=== PATIENT | male | born 1980 | race Caucasian/White ===

== ENCOUNTER 2018-10-29 16:16 | Emergency (ER) | payer OTHER ==
[2018-10-29 16:20] VITALS: BP 128/84; PULSE 113; RESP 18; TEMP 98.1
[2018-10-29] MEDS ORDERED: KETOROLAC 30 MG/ML 1 ML VIAL IM STA (17:10)
[2018-10-29] MEDS ORDERED: predniSONE 20 MG TAB PO STA (17:10)
[2018-10-29] MEDS ORDERED: DIAZEPAM 5 MG TAB PO STA (17:10)
--- NOTE | 2018-10-29 17:40 | ED ---
Upper Extremity HPI - General Chief Complaint: Extremity Injury, Upper Stated Complaint: rt arm pain Time Seen by Provider: 10/29/18 16:34 Source: patient Mode of arrival: ambulatory Limitations: no limitations - History of Present Illness Initial Comments: 38-year-old male presented for bilateral upper arm pain. Patient states he has had a pinched nerve in the past he states it comes and goes. He states is chronic for years. Patient denies any new neck injury denies history of cancer or IV drug use fever chills night sweats history of tuberculosis. Patient denies any loss sensation of the upper extremity. He denies any chest pain nausea vomiting epigastric abdominal pain he denies any mid back pain. Patient states that steroids usually help and presents emergency department for evaluation. Upon arrival patient appears well no signs of acute distress. - Related Data Previous Rx's Medication Instructions Recorded Divalproex ER [Depakote ER] 750 mg PO DAILY #21 tab.er.24h 05/23/15 QUEtiapine [SEROquel] 75 mg PO HS #21 tab 05/23/15 predniSONE 20 mg PO BID 4 Days #8 tab 10/29/18 Allergies Allergy/AdvReac Type Severity Reaction Status Date / Time No Known Allergies Allergy Verified 10/29/18 16:20 Review of Systems ROS Statement: Those systems with pertinent positive or pertinent negative responses have been documented in the HPI. ROS Other: All systems not noted in ROS Statement are negative. Past Medical History Past Medical History: Hypertension History of Any Multi-Drug Resistant Organisms: None Reported Past Surgical History: No Surgical Hx Reported Past Psychological History: Anxiety, Panic Disorder Smoking Status: Heavy tobacco smoker Past Alcohol Use History: Occasional Past Drug Use History: Marijuana - Past Family History Father Additional Family Medical History / Comment(s): Father is alive in his 70s with history of heroin abuse. Mother Additional Family Medical History / Comment(s): Mother in her 50s or 60s from liver disease due to alcoholism. Patient denies having any brothers, sisters or children. General Exam - General Exam Comments Initial Comments: General: The patient is awake and alert, in no distress, and does not appear acutely ill. Eye: Pupils are equal, round and reactive to light, extra-ocular movements are intact. No nystagmus. There is normal conjunctiva bilaterally. No signs of icterus. Ears, nose, mouth and throat: There are moist mucous membranes and no oral lesions. Neck: The neck is supple, there is no tenderness or JVD. Cardiovascular: There is a regular rate and rhythm. No murmur, rub or gallop is appreciated. Respiratory: Lungs are clear to auscultation, respirations are non-labored, breath sounds are equal. No wheezes, stridor, rales, or rhonchi. Gastrointestinal: Soft, non-distended, non-tender abdomen without masses or organomegaly noted. There is no rebound or guarding present. No CVA tenderness. Bowel sounds are unremarkable. Musculoskeletal: Positive Spurling. Normal ROM, no tenderness of the UE. Strength 5/5 of the UE. Sensation intact of the UE b/l. Radial pulses equal bilaterally 2+. Paravertebral tenderness of the cervical spine Neurological: A&O x 3. CN II-XII intact, There are no obvious motor or sensory deficits. Coordination appears grossly intact. Speech is normal. Skin: Skin is warm and dry and no rashes or lesions are noted. Psychiatric: Cooperative, appropriate mood & affect, normal judgment. Limitations: no limitations Course Vital Signs 10/29/18 10/29/18 16:17 17:51 Temperature 98.1 F 98.1 F Pulse Rate 113 H 113 H Respiratory 18 18 Rate Blood Pressure 128/84 128/84 O2 Sat by Pulse 98 98 Oximetry Medical Decision Making - Medical Decision Making 38-year-old male presented for bilateral arm pain. Patient states he has had "pinched nerve" in the past. Patient states characters to the pain is identical sharp burning pain down the arms bilaterally. Patient has a chest or back pain. He states that he does occasionally have neck pain. She denies IV drug use fever chills night sweats IV drug use history of cancer or tuberculosis. Patient denies any direct or indirect trauma to the neck. Patient states he often slouches. Patient states steroids usually help during these flares. Patient is provided prednisone. Patient had right home and was provided Valium as well as Toradol. Return parameters discussed at length the patient who at this time I feel stable for discharge with outpatient orthopedic surgery. I discussed the case attending provider Dr. Vick who is agreeable to outpatient care plan and discharged today. Disposition Clinical Impression: Radiculopathy Disposition: HOME SELF-CARE Condition: Good Instructions (If sedation given, give patient instructions): Cervical Radiculopathy (ED), Chronic Neck Pain (DC) Additional Instructions: Please use medication as discussed. Please follow-up with family doctor in the next 2 days. Please follow-up with orthopedic surgery if symptoms persist. Please return to emergency room if the symptoms increase or worsen or for any other concerns. Prescriptions: predniSONE 20 mg PO BID 4 Days #8 tab Is patient prescribed a controlled substance at d/c from ED?: No Referrals: None,Stated [Primary Care Provider] - 1-2 days [facility] [NON-STAFF] - 1-2 days Shira Mirza DO [Doctor of Osteopathic Medicine] - 1-2 days Time of Disposition: 17:40
== END 2018-10-29 17:51 | disposition home or self-care (01) ==
LOC: EC 16:16
DX: M54.10 Radiculopathy, site unspecified (principal); F17.200 Nicotine dependence, unspecified, uncomplicated
CPT/HCPCS: 99283; 96372; J1885; J7512

== ENCOUNTER 2024-04-25 20:22 | Emergency (ER) | payer OTHER ==
[2024-04-25 20:35] VITALS: TEMP 97.9
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
[2024-04-25 21:52] VITALS: BP 140/97; PULSE 90; RESP 18
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
[2024-04-25] MEDS: ACET/COD 300 MG/30 MG STARTER PACK 6 TAB BTL PO STA (22:02)
[2024-04-25] MEDS: KETOROLAC 15 MG/ML 1 ML VIAL IVP STA (22:03)
== END 2024-04-25 22:33 | disposition left against medical advice (07) ==
LOC: EC 20:22
CPT/HCPCS: 96374; 99283

== ENCOUNTER → 2024-04-29 | Outpatient (CLI) | payer OTHER ==
--- NOTE | 2024-04-29 13:20 | XR ---
EXAMINATION TYPE: XR chest 2V DATE OF EXAM: 04/29/2024 12:15 PM COMPARISON: None CLINICAL INDICATION: Male, 44 years old with history of Z01.818 PRE SURGICAL LABS/R05.9 CHEST XRAY; TECHNIQUE: XR chest 2V Frontal and lateral views of the chest. FINDINGS: Lungs/Pleura: There is no evidence of pleural effusion, focal consolidation, or pneumothorax. Pulmonary vascularity: Unremarkable. Heart/mediastinum: Cardiomediastinal silhouette is unremarkable. Musculoskeletal: No acute osseous pathology. IMPRESSION: No acute cardiopulmonary disease/process. [facility], , 04/29/2024 1:17 PM
[2024-04-29 16:10] LABS: Basophils # (A) 0.05 X 10*3/uL (0.00-0.10); Basophils % (A) 0.5 %; Eosinophils % (A) 2.9 %; HGB 13.9 g/dL (13.0-17.0); Lymphocytes # (A) 2.48 X 10*3/uL (0.90-5.00); Lymphocytes % (A) 23.8 %; MCH 31.1 pg (27.0-32.0); MCHC 33.1 g/dL (32.0-37.0); Mean Platelet Volume 9.7 FL (9.5-12.2); Monocytes # (A) 0.73 X 10*3/uL (0.20-1.00); NRBC Per 100 WBC 0 X 10*3/uL (0.00-0.01); Neutrophils # (A) 6.83 X 10*3/uL (1.80-7.70); Neutrophils % (A) 65.4 %; Platelet Count 285 X 10*3/uL (140-440); RBC 4.47 X 10*6/uL (4.40-5.60); RDW 11.9 % (11.5-14.5); WBC 10.43 X 10*3/uL (4.50-10.00)
[2024-04-29 16:25] LABS: BUN/Creat Ratio 13.43 Ratio (12.00-20.00); Blood Urea Nitrogen 9.4 mg/dL (9.0-27.0); Carbon Dioxide 25.8 mmol/L (21.6-31.8); Chloride 100 mmol/L (96-109); Glucose 94 mg/dL (70-110); Potassium 4.2 mmol/L (3.5-5.5); Sodium 137 mmol/L (135-145)
[2024-04-29 16:26] LABS: Calcium 9.2 mg/dL (8.7-10.3)
== END | disposition home or self-care (01) ==
LOC: LABPAT 10:34
PROVIDERS: ATTEND Orthopaedic Surgery
CPT/HCPCS: 36415; 71046; 80048; 85025

== ENCOUNTER 2024-05-01 06:13 | Day surgery (SDC) | payer OTHER ==
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
[2024-05-01] MEDS ORDERED: MIDAZOLAM 2 MG/2 ML VIAL IV PRN (07:00)
[2024-05-01] MEDS: DEXAMETHASONE SOD PHOSPHATE 4 MG/ML 1 ML VIAL IV ONE (07:41)
[2024-05-01] MEDS: ONDANSETRON 4 MG/2 ML VIAL IVP ONE (07:41)
[2024-05-01] MEDS: SCOPOLAMINE 1 MG/72 HR PATCH TRANSDERM ONE (07:41)
[2024-05-01] MEDS: LACTATED RINGERS 1,000 ML IV SCH (07:45)
[2024-05-01] MEDS: IV FLUID CONTINUATION 1,000 ML IV ONE (07:55)
[2024-05-01] MEDS: IPRATROPIUM-ALBUTEROL 3 ML NEB INHALATION STA (08:01)
[2024-05-01] MEDS ORDERED: LIDOCAINE 1% INJ 10MG/ML (20 ML MDV) ONE (08:41)
[2024-05-01] MEDS ORDERED: GLYCOPYRROLATE 0.2 MG/ML 2 ML VIAL ONE (08:41)
[2024-05-01] MEDS ORDERED: KETOROLAC 15 MG/ML 1 ML VIAL ONE (08:41)
[2024-05-01] MEDS ORDERED: PROPOFOL 10 MG/ML 20 ML VIAL IV ONE (08:41)
[2024-05-01] MEDS ORDERED: KETAMINE HCL IN 0.9 % NACL 50 MG/5 ML SYRINGE ONE (08:41)
[2024-05-01] MEDS ORDERED: NEOSTIGMINE 1 MG/ML 10 ML VIAL ONE (08:41)
[2024-05-01] MEDS ORDERED: MIDAZOLAM 2 MG/2 ML VIAL ONE (08:41)
[2024-05-01] MEDS ORDERED: ROCURONIUM 10 MG/ML (5 ML VIAL) IV ONE (08:41)
[2024-05-01] MEDS ORDERED: SUCCINYLCHOLINE CHLORIDE 200 MG/10 ML VIAL IV ONE (08:41)
[2024-05-01] MEDS ORDERED: fentaNYL (PF) 50 MCG/ML 2 ML AMP ONE (08:41)
[2024-05-01] MEDS ORDERED: HYDROmorphone (PF) 1 MG/ML ONE (08:41)
[2024-05-01] MEDS: ceFAZolin 3,000 MG in SODIUM CHLORIDE 0.9% IRRIGATIO 3,000 ML IRRIGATION ONE (09:10)
[2024-05-01] MEDS ORDERED: HYDROcodone/APAP 5-325MG 1 EACH TAB PO PRN (09:40)
[2024-05-01] MEDS ORDERED: HYDROmorphone 2 MG/ML 1 ML SYRINGE IVP PRN (09:40)
[2024-05-01] MEDS ORDERED: SENNOSIDES-DOCUSATE SODIUM 1 EACH TAB PO PRN (09:40)
[2024-05-01] MEDS: LACTATED RINGERS 1,000 ML IV ONE (09:47)
--- NOTE | 2024-05-01 10:04 | P.OP ---
Date of Procedure: 05/01/24 Preoperative Diagnosis: Left knee comminuteddisplaced inferior pole patella fracture Postoperative Diagnosis: Same Procedure(s) Performed: Left knee partial patellectomy me/patellar tendon repair Anesthesia: SARA Surgeon: Brandan Yoder Air Sampling And Monitoring #1: Didier Huizar Estimated Blood Loss (ml): 50 Pathology: none sent Condition: stable Disposition: PACU Indications for Procedure: The patient is a 44-year-old male who presents with left knee pain after a rec ent injury. Upon evaluation he was noted to have evidence of a displaced inferior pole patella fracture. A discussion of the risks and benefits of operative intervention was made with patient. He opted to proceed with surgery. I discussed operative options, and since the inferior pole fragment was too small to consider fixation, we planned on partial patellectomy with patellar tendon repair. Risks of surgery to include infection, neurovascular injury, development of blood clots, possible tendon rerupture, possible need for subsequent procedures were discussed. Informed consent was obtained. Operative Findings: As below Description of Procedure: The patient was brought to the operating room, and after induction of general anesthesia the left lower extremity was prepped and draped in normal fashion. The tourniquet was inflated to 270 mmHg. A midline incision was then made centered over the patella extending to the tibial tubercle. Skin was incised sharply. Subcutaneous tissues were divided sharply. Electrocautery was used for hemostasis. The peritenon was opened. The fracture site was identified and cleaned of clot and debris. The inferior fragment was identified and patellar tendon was completely exposed. The small inferior fragment had no cartilage. This was excised with sharp dissection. Two #5 Ethibond sutures were then placed in the patellar tendon in a Bennell type fashion. 3 drill holes were made in the patella just off the articular surface inferiorly extending to the anterior aspect of the patella. A suture passer was used to pass the sutures. The knee was then fully extended and the sutures were tensioned. I had good apposition of the patellar tendon and the patella. The medial and lateral retinacular tears were repaired with #1 interrupted Vicryl suture. The subcutaneous tissues reapproximated interrupted 2-0 Vicryl sutures. The skin was reapproximated 3-0 subcuticular strata fix suture. Skin tape and adhesive was applied. A sterile dressing was applied in addition to a hinged knee brace locked in full extension. The tourniquet was deflated with less than 1 hour total tourniquet time. The patient was awoken from general anesthesia and transferred to the recovery room in good condition. Blood loss is estimated 50 cc. No complications were incurred. Sponge and needle counts were correct at the end the case. DELANO Colon assisted during the major components of the case to include positioning, exposure, repair, and closure.
[2024-05-01] MEDS: HYDROmorphone 0.5 MG/0.5 ML SYRINGE IVP PRN ×2 (10:19→15:21)
[2024-05-01] MEDS: LABETALOL SYRINGE 5 MG/ML (4 ML SYR) IVP STA (10:50)
[2024-05-01] MEDS: HYDROcodone/APAP 7.5-325MG 1 EACH TAB PO PRN (12:56)
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
[2024-05-01] MEDS: NICOTINE 21MG/24HR PATCH TRANSDERM SCH (15:28)
[2024-05-01] MEDS: hydrOXYzine pamoate 25 MG CAP PO PRN (18:19)
[2024-05-02 05:38] LABS: Basophils % (A) 0 %; Eosinophils # (A) 0.1 k/uL (0-0.7); Eosinophils % (A) 1 %; HCT 38.1 % (39.0-53.0); HGB 12.1 gm/dL (13.0-17.5); Lymphocytes # (A) 2.1 k/uL (1.0-4.8); Lymphocytes % (A) 16 %; MCH 30.4 pg (25.0-35.0); MCHC 31.8 g/dL (31.0-37.0); MCV 95.7 fL (80.0-100.0); Mean Platelet Volume 7.2; Monocytes # (A) 0.6 k/uL (0-1.0); Monocytes % (A) 5 %; Neutrophils # (A) 10.7 k/uL (1.3-7.7); Neutrophils % (A) 78 %; Platelet Count 280 k/uL (150-450); RBC 3.98 m/uL (4.30-5.90); RDW 12.2 % (11.5-15.5); WBC 13.7 k/uL (3.8-10.6)
[2024-05-02 09:23] VITALS: BP 149/82; PULSE 119; RESP 18; TEMP 98.5
--- NOTE | 2024-05-02 10:59 | P.PN ---
Progress Note - Text Progress Note Date: 05/02/24 Patient is stable for discharge from a medical standpoint. I reviewed patient's labs and vital signs. I have completed patient's medication reconciliation. Medicine service will sign off.
--- NOTE | 2024-05-02 12:52 | P.PN ---
Subjective Progress Note Date: 05/02/24 Principal diagnosis: Left knee pain and weakness Patient seen and examined this afternoon. Patient is resting comfortable in bed. Spouse is at bedside. Surgical incision over the anterior left knee, edges are well approximated with glue intact, exofin tape is intact. Immobilizer is in place and locked at full extension. Patient is requesting a walker with wheels, prescription has been filled out with Case management. Patient is looking forward to discharge home this afternoon. No acute concerns. Objective - Vital Signs Vital signs: Vital Signs Temp 98.5 F 05/02/24 08:42 Pulse 119 H 05/02/24 08:42 Resp 18 05/02/24 08:42 BP 149/82 05/02/24 08:42 Pulse Ox 96 05/02/24 08:42 FiO2 Intake & Output 05/01/24 05/02/24 05/02/24 18:59 06:59 18:59 Intake Total 1151 50 Output Total 750 Balance 401 50 Weight 77.1 kg Intake: IV 1151 Intake, IV Titration 50 Amount ceFAZolin 2 gm In Sodium 50 Chloride 0.9% 50 ml @ 100 mls/hr IVPB Q8HR [facility] Rx# :[id number] Output: Urine 700 Estimated Blood Loss 50 Other: Voiding Method Urinal - Exam Left knee: Inspection:Surgical incision of the anterior left knee, edges are well estimated with Exofin tape present and intact. No active drainage Sensation: Sensation is equal, symmetric, bilaterally intact throughout the upper and lower extremities Palpation: Nontender to palpation throughout bilateral upper and lower extremities and throughout spine exam Range of motion: Patient does have full range of motion bilateral upper and right lower extremity. Left lower extremity is locked in full extension with immobilizer. Motor: 5/5 in all major motor groups in the bilateral upper and lower extremities Special tests: Negative Homans bilaterally. Negative Le bilaterally. Negative clonus bilaterally. Neurovascular: Radial pulse intact, 2+ bilaterally. Cap refill under 3 seconds in digits upper extremities. - Labs CBC & Chem 7: 05/02/24 04:54 Labs: Abnormal Lab Results - Last 24 Hours (Table) 05/02/24 Range/Units 04:54 WBC 13.7 H (3.8-10.6) k/uL RBC 3.98 L (4.30-5.90) m/uL Hgb 12.1 L (13.0-17.5) gm/dL Hct 38.1 L (39.0-53.0) % Neutrophils # 10.7 H (1.3-7.7) k/uL Assessment and Plan Assessment: Postop day 1: Left knee partial patellectomy me/patellar tendon repair Plan: -Appreciate delivery consultant and team management. -Activity: Ambulate QID, OOB all meals, up and about, limit lifting bending twisting to less than 5 lbs. Use walker or cane if needed for stability. -Daily PT/OT, increase ambulation strength and balance. -Brace on at all times locked in full extension. Patient may remove for shower, or sponge bath. -Pain control: Adequate at this time -Meds: reviewed -GI ppx: senna, Miralax -DVT PPX: Aspirin -Hygiene: Maintain incision clean and dry. -Encourage IS 10x/hr -Dispo: Anticipate discharge home later today. *I reviewed and discussed this case with my attending Dr. Yoder, whom has reviewed this chart and films and is in agreement with assessment and plan of care as outlined above. I have personally seen and examined the patient, performed the documentation and the assessment and plan as written. Number of minutes spent on the visit: 20m.
--- NOTE | 2024-05-02 12:54 | P.DS ---
Providers Date of admission: 05/01/24 Expected date of discharge: 05/02/24 Attending physician: Brandan Yoder Consults: 05/01/24 09:47 Consult Physician Routine Consulting Provider: Santiago Rosado Consult Reason/Comments: Medical Management s/p left knee patellectomy and patellar tendon repair Do you want consulting provider notified?: Yes Primary care physician: Stated None Hospital Course: Hospital Course: The patient was evaluated preoperatively and found to have the diagnosis of left patella fracture. They underwent appropriate preoperative care and were willing to undergo the intended procedure. They underwent a successful Left knee partial patellectomy me/patellar tendon repair, were recovered appropriately and sent to the floor. While on the floor they worked with physical therapy, occupational therapy and nursing to enhance their recovery experience. Their pain was well controlled through their stay and they were started on appropriate medications, DVT ppx modalities, activity and dietary needs. Daily labs were monitored closely, and transfusions were only used when necessary. Medicine as well as other consulting services have made their input and have helped with our team approach and multidisciplinary care. PT milestones have been met and passed and they have made the recommendation of home for this patient and treating providers agree with this care path. The patient will be discharged home with appropriate medications, instructions and follow-up information and in stable condition. Patient Condition at Discharge: Good Plan - Discharge Summary Discharge Rx Participant: No New Discharge Prescriptions: New Aspirin 325 mg PO DAILY #30 tab HYDROcodone/APAP 7.5-325MG [[place] 7.5-325] 1 tab PO Q6HR PRN #21 tab PRN Reason: Pain Sennosides/Docusate Sodium [Senna Plus 8.6-50 mg Softgel] 1 each PO DAILY #20 capsule Cyclobenzaprine [Flexeril] 5 mg PO BID #20 tablet Discharge Medication List Aspirin 325 mg PO DAILY #30 tab 05/01/24 [Rx] HYDROcodone/APAP 7.5-325MG [[place] 7.5-325] 1 tab PO Q6HR PRN #21 tab 05/01/24 [Rx] Sennosides/Docusate Sodium [Senna Plus 8.6-50 mg Softgel] 1 each PO DAILY #20 capsule 05/01/24 [Rx] Cyclobenzaprine [Flexeril] 5 mg PO BID #20 tablet 05/02/24 [Rx] Follow up Appointment(s)/Referral(s): Didier Huizar, JORGE [PHYSICIAN STOPPER MAKER] - 2 Weeks Patient Instructions/Handouts: Patellar Fracture (ED), Patellar Fracture (GEN), Patellar Fracture Repair (DC) Activity/Diet/Wound Care/Special Instructions: Orthopedic Discharge Instructions: 1. Wound care and infection precautions, keep incision dry and covered while showering, no lotions, creams, moisturizers. No soaking, pools, hot tubs. Do not scrub over incision. 2. Weight-bear as tolerated with walker / cane until follow-up. 3. Ice and elevate when necessary. Do not exceed 20 minutes per hour with ice pack. 4. Utilize IROM hinged knee brace and keep in full extension until seen at first follow up appointment. 5. Pain meds and anticoagulants per prescription. 6. Pain medication has potential to cause constipation. Increase oral fluid and fiber intake. Contact primary care provider if you have not had a bowel movement within 48 hours after discharge. 7. No anti-inflammatory medication until discussed at first post operative visit, this including Motrin, Aleve, Mobic, Diclofenac. 8. Follow up in office at 2 weeks postop with Ilia Luo PA-C / Didier Huizar PA-C 9. Follow up with your primary care doctor 7-10 days after discharge. 10. Contact [facility] with any questions, . Discharge Disposition: HOME SELF-CARE
== END 2024-05-02 14:42 | disposition home or self-care (01) ==
LOC: OR 06:13 → 4SSUR 09:53 → OR 05-02 14:42
PROVIDERS: ATTEND Orthopaedic Surgery
DX: S82.032A Displaced transverse fracture of left patella, initial encounter for closed fracture (principal); V87.8XXA Person injured in other specified noncollision transport accidents involving motor vehicle (traffic), initial encounter; I10 Essential (primary) hypertension; F17.210 Nicotine dependence, cigarettes, uncomplicated; K21.9 Gastro-esophageal reflux disease without esophagitis
CPT/HCPCS: 97116 ×2; 97162; 85025; 27310; S4990 ×2; J2250; J0330; J1100; J2710; J0690 ×3; J2405; J2003; J3010; J1171 ×3; J1885; J2704; J1920; J1596